=== PATIENT | male | born 1970 | race Caucasian/White ===

== ENCOUNTER 2018-02-05 08:49 | Outpatient (CLI) | payer OTHER ==
--- NOTE | 2018-02-05 11:36 | MRI ---
MRI RIGHT KNEE PERFORMED WITHOUT CONTRAST ENHANCEMENT: HISTORY: Fall two weeks ago. FINDINGS: There is a proximal ACL tear present. The posterior cruciate ligament is intact. The lateral meniscus is normal in shape and appearance. There are no signs of a medial meniscus tear , although there appears to be partial disruption of the meniscofemoral ligament. The meniscotibial ligament appears intact. This is associated with edema changes, both superficial and deep to the MCL with a partial tear of the more proximal MCL with slightly lax appearing fibers, although it does no t appear to be completely disrupted. The more distal MCL has a normal appearance, and the lateral co llateral ligamentous complex appears unremarkable. The patellar articular cartilage is intact. Medial and lateral patellar retinaculum and quadriceps a nd patellar tendons are normal. There is a typical posterior tibial bone contusion. There is a focus of T1 lucency in this area, com patible with a trabecular fracture, near the level of the fused epiphyseal plate. In addition, there is evidence of some cartilage injury along the posterior aspect of the lateral tibial plateau. This is near the tibial spine, and there appears to be a small focus where there is some delamination, wi th fluid undermining the cartilage in this area. This is approximately 6 mm in transverse dimension and similar sized in AP dimension. Also, incidental note is made of some muscle strain involving the vastus intermedius and some of the anterior fibers of the biceps femoris muscle. These changes are closer to the musculotendinous junct ion. IMPRESSION: 1. Proximal anterior cruciate ligament tear, which appears complete. 2. Grade 2 proximal medial collateral ligament injury, 3. Posterolateral tibial contusion. There appears to be an area of overlying articular cartilage in jury, where there is increased signal change within the 6 x 6 mm area of the articular cartilage, rodney ng the posterolateral side of the tibia. This is close to the region of the tibial spine. It appear s to have some component of delamination, as their appears to be fluid abutting the subchondral bony plate in this region. 4. Evidence of muscle strain involving the vastus intermedius and biceps femoris muscles, near the m usculotendinous junction region. POS: [facility]
== END 2018-02-05 08:50 | disposition home or self-care (01) ==
LOC: MRI 08:49
PROVIDERS: ATTEND Orthopaedic Surgery
DX: S83.511A Sprain of anterior cruciate ligament of right knee, initial encounter (principal); S76.311A Strain of muscle, fascia and tendon of the posterior muscle group at thigh level, right thigh, initial encounter; S80.11XA Contusion of right lower leg, initial encounter; S89.91XA Unspecified injury of right lower leg, initial encounter

== ENCOUNTER 2018-02-11 14:47 | Outpatient (CLI) | payer OTHER ==
[2018-02-11 15:44] LABS: #Eosinphils 0.4 thou/uL (0.0-0.7); #Lymphocytes 1.8 thou/uL (1.20-3.40); #Monocytes 0.6 thou/uL (0.11-0.59); #Neutrophils 5.5 thou/uL (1.40-6.50); %Basophils 0.3 % (0.0-1.0); %Eosinophils 4.6 % (0.0-10.0); %Monocytes 7.5 % (0.0-10.0); %Neutrophils 65.6 % (42.0-75.0); Hemoglobin 16.7 g/dL (14.0-18.0); Mean Corpuscular HGB CONC 35.6 g/dL (32.0-36.0); Mean Corpuscular Hemoglobin 32.5 pg (27.0-31.0); Mean Corpuscular Volume 91.3 fl (80.0-94.0); Mean Platelet Volume 7.3 fL (7.4-10.4); Platelet Count 254 thou/uL (130-400); RBC Distribution Width 11.5 % (11.5-14.5); Red Blood Cell (RBC) Count 5.14 mill/uL (4.70-6.10); White Blood Cell (WBC) Count 8.4 thou/uL (4.8-10.8)
[2018-02-11 16:05] LABS: Anion Gap 15 mmol/L (10-20); BUN (Urea Nitrogen) 15 mg/dL (8.9-20.6); Calc. Creatinine Clearance 0 mL/min (70-130); Carbon Dioxide 25 mmol/L (22-29); Chloride 105 mmol/L (98-107); Estimated GFR-MDRD 64; Glucose 80 mg/dL (70-105); Potassium 4.1 mmol/L (3.5-5.1); Sodium 141 mmol/L (136-145)
== END 2018-02-11 14:48 | disposition home or self-care (01) ==
LOC: LABBT 14:47
PROVIDERS: ATTEND Orthopaedic Surgery
DX: Z01.818 Encounter for other preprocedural examination (principal); S83.511A Sprain of anterior cruciate ligament of right knee, initial encounter
CPT/HCPCS: 80048; 85025; 93005; 93010

== ENCOUNTER 2018-02-12 07:22 | Observation (INO) | payer OTHER ==
[2018-02-11 14:56] VITALS: BMI 24.4
[2018-02-12] MEDS ORDERED: Dexamethasone 4 mg/ml Vial ONE (08:04)
[2018-02-12] MEDS ORDERED: Clindamycin/D5W 600 mg/50 ml Premix Bag ONE (08:04)
[2018-02-12] MEDS ORDERED: Fentanyl 100 MCG/2 ML VIAL ONE ×3 (08:04→11:45)
[2018-02-12] MEDS ORDERED: Midazolam HCl 2 mg/2 ml Vial ONE (08:04)
[2018-02-12] MEDS ORDERED: Bupivacaine HCl 0.5%/Epinephrine 1:200,000/PF 30 ml Vial ONE (11:03)
[2018-02-12] MEDS ORDERED: Ondansetron HCl/PF 4 MG/2 ML Vial IVP PRN ×2 (11:14→11:23)
[2018-02-12] MEDS ORDERED: Promethazine HCl 25 MG/ML VIAL SLOW IVP PRN (11:14)
[2018-02-12] MEDS ORDERED: Promethazine HCl 25 MG/ML VIAL IM PRN (11:14)
[2018-02-12] MEDS ORDERED: HYDROcodone/Acetaminophen 7.5/325 mg Tablet PO PRN (11:23)
[2018-02-12] MEDS ORDERED: Bisacodyl 10 MG SUPP PR PRN (11:23)
[2018-02-12] MEDS ORDERED: Acetaminophen 500 MG TAB PO PRN (11:23)
[2018-02-12] MEDS ORDERED: Milk Of Magnesia 30 ML UDCUP PO PRN (11:23)
[2018-02-12] MEDS ORDERED: traMADol HCl 50 MG TAB PO PRN (11:23)
[2018-02-12] MEDS ORDERED: Methocarbamol 500 MG TAB PO PRN (11:23)
[2018-02-12] MEDS ORDERED: diphenhydrAMINE 50 MG CAP PO PRN (11:23)
--- NOTE | 2018-02-12 11:45 | OP ---
DATE OF PROCEDURE: 02/12/2018 PREOPERATIVE DIAGNOSIS: Right knee anterior cruciate ligament tear, grade 2 medial collateral ligame nt tear. POSTOPERATIVE DIAGNOSES: 1. Right knee anterior cruciate ligament tear, grade 2 medial collateral ligament tear. 2. Stable undersurface tear to the lateral meniscus, posterior horn. PROCEDURE PERFORMED: 1. Right knee exam under anesthesia. 2. Right knee arthroscopy with arthroscopically-assisted ACL reconstruction using an allograft Lyndail les tendon. SURGEON: Ravindra Laguna M.D. LAND ACQUISITION SPECIALIST: Capo Sparks PA-C. BLOOD LOSS: Minimal. COMPLICATIONS: None. He did have a general anesthetic. He did have a preoperative block. IMPLANTS: Into the right knee is a 7 x 25 metal interference screw. A 10-mm BioComposite Delta scre w and a bicortical titanium screw with a soft tissue washer for a post-fixation on the tibia. These were all [employer] devices. He did go to recovery room in stable condition. INDICATIONS: A 47-year-old male, who had his knee injury a couple weeks back and was found to have a n ACL tear as well as a grade 2 MCL injury, and at this time, he opted for surgery. DESCRIPTION OF PROCEDURE: After all appropriate consent forms were explained and signed, he was take n back to the operating room, and at this time, was given general anesthetic. Once anesthesia was ap propriate, the tourniquet was placed on the right thigh, and at this time, an exam under anesthesia c ommenced. The knee was found to be stable to valgus stress in full extension, but opened up, and 30 degrees of flexion. He was stable to varus stress. He had negative posterior drawer and positive La chman. At this time, the leg was placed in an arthroscopic leg gould. The limb was then prepped an d draped in standard surgical fashion. Limb was exsanguinated and tourniquet was taken to 300 mmHg. An inferolateral portal was established and the scope was placed into the knee joint. A needle loca lization technique was then used to make a medial working portal just off the medial edge of the ellsworth llar tendon. At this time, diagnostic arthroscopy commenced. The ACL was found to be torn. The PCL was intact. There was a large loose fragment in the notch, which was later found to be part of the notch, which was thought to be when he tore his ACL and he got injured from this injury. This was re moved with a grasper. We then went ahead and removed any remaining ligament and went ahead at this t jaxon and performed a notchplasty. Once this was done, we turned to the medial compartment. Femur, ti luiz, and medial meniscus were probed and found to be intact. The lateral compartment was then evalua rodolfo, femur, tibia, and lateral meniscus, found the lateral meniscus to have an undersurface tear of t he posterior horn. It did not go to the superior surface. We used the shaver to shave up in the tor n portion on the undersurface. We decided to leave this alone. The tibia and femur were overall in good condition. The gutters were swept through and no loose bodies were noted and the patellofemoral joint was found to be in good condition. At this time, we went ahead and flexed our knee up and thr ough a medial portal, placed our [id number] guide and a pin up and out the anterolateral thigh. We then reamed with an 11-mm acorn reamer to a depth of 30. This was removed and all loose bony cartil aginous debris was removed from the knee joint. We then went ahead and dilated our femoral tunnel wi th a 10.5 and 11 dilators. We then turned our attention to the tibial tunnel. The guide set at 57-1 /2 degrees. We went ahead and placed our pin up into the knee joint. Prior to doing this, obviously we made tibial incision through skin and down through subcutaneous tissue. Once the pin had been pl aced, we then removed our soft tissue from around the pin and used our 11 mm acorn reamer to ream our tibial tunnel. Again, dilators were used to dilate with 10.5 and 11 dilators. The red rasp and a b urr were then used to smooth off our edges, and at this time, we went dry in the knee. The knee was flexed. The pin was placed up and out the anterolateral thigh again with a passing suture. This was pulled down the tibial tunnel and used to guide our graft into the knee joint. The femoral side was then fixated with a 7 x 25 metal interference screw in standard fashion. On the tibial side with th e knee held out near full extension, a posterior drawer being applied, a 10 mm BioComposite Delta scr ew was placed. We then backed this up by drilling, tapping, and placing a bicortical screw with a so ft tissue washer on the tibia. The knee was taken through full range of motion. The graft was found to not impinge throughout full flexion and extension, and at this time, we removed the scope and avery ined the knee. We then went ahead and cut off our excess Achilles tendon graft. We then used some d eep Vicryls to close our soft tissue followed by 2-0 Vicryl and surgical magali for skin. A bulky s terile dressing was applied and the tourniquet let down. Toes pinked up nicely. The patient was thomas kened and he was taken to the recovery room in stable condition. All counts were correct at the end of the case and he did receive preoperative IV antibiotics.
[2018-02-12] MEDS ORDERED: Meperidine HCl/PF 25 MG/ML VIAL ONE (11:48)
[2018-02-12] MEDS ORDERED: Promethazine HCl 25 MG/ML VIAL ONE (11:49)
[2018-02-12] MEDS ORDERED: Clindamycin/D5W 900 MG in Premix Bag 1 BAG IVPB SCH (14:00)
[2018-02-12] MEDS: Dextrose 5 %-0.45 % NaCl 1,000 ML IV SCH ×2 (15:06→21:45)
[2018-02-12] MEDS: HYDROcodone/Acetaminophen 7.5/325 mg Tablet PO PRN (15:18)
[2018-02-12] MEDS: Clindamycin/D5W 900 MG in Premix Bag 1 BAG IVPB SCH ×2 (15:18→20:59)
[2018-02-12] MEDS ORDERED: PROPOFOL 200 MG/20 ML VIAL ONE (17:42)
[2018-02-12] MEDS ORDERED: Dexamethasone 20 MG/5 ML VIAL ONE (17:42)
[2018-02-12] MEDS ORDERED: Ondansetron HCl/PF 4 MG/2 ML Vial ONE (17:42)
[2018-02-12] MEDS ORDERED: HYDROmorphone 0.5 MG/0.5 ML SYRINGE SLOW IVP SCH (18:15)
[2018-02-12] MEDS: Famotidine 20 MG TAB PO SCH (20:55)
[2018-02-12] MEDS ORDERED: Aspirin 81 mg Enteric Coated Tablet PO SCH (21:00)
[2018-02-12] MEDS ORDERED: ALPRAZolam 1 MG TAB PO SCH (21:00)
[2018-02-12] MEDS ORDERED: Topiramate 25 MG TAB PO SCH (21:00)
[2018-02-12] MEDS ORDERED: Atorvastatin Calcium 40 MG TAB PO SCH (21:00)
[2018-02-13] MEDS: Famotidine 20 MG TAB PO SCH (08:10)
[2018-02-13] MEDS ORDERED: Clopidogrel Bisulfate 75 MG TAB PO SCH (09:00)
[2018-02-13] MEDS ORDERED: Multivit, Therapeutic 1 TAB PO SCH (09:00)
[2018-02-13] MEDS ORDERED: Fish Oil 1,000 MG CAP PO SCH (09:00)
[2018-02-13] MEDS ORDERED: CeleCOXIB 100 MG CAP PO SCH (09:00)
[2018-02-13] MEDS ORDERED: CeleCOXIB 100 MG CAP PO ONE (09:30)
[2018-02-13] MEDS: HYDROcodone/Acetaminophen 7.5/325 mg Tablet PO PRN (09:56)
[2018-02-13] MEDS: Dextrose 5 %-0.45 % NaCl 1,000 ML IV SCH (09:58)
[2018-02-13 12:25] VITALS: BP 124/65; TEMP 97.3
== END 2018-02-13 12:10 | disposition home or self-care (01) ==
LOC: SDC 07:22 → SURG A 11:23
PROVIDERS: ADMIT Orthopaedic Surgery; ATTEND Orthopaedic Surgery
PROC: 0SBC4ZZ Excision of Right Knee Joint, Percutaneous Endoscopic Approach (ICD-10-PCS; principal; 2018-02-12)
PROC: 0MRN47Z Replacement of Right Knee Bursa and Ligament with Autologous Tissue Substitute, Percutaneous Endoscopic Approach (ICD-10-PCS; 2018-02-12)
DX: S83.511A Sprain of anterior cruciate ligament of right knee, initial encounter (principal); S83.411A Sprain of medial collateral ligament of right knee, initial encounter; S83.281A Other tear of lateral meniscus, current injury, right knee, initial encounter; F17.210 Nicotine dependence, cigarettes, uncomplicated; Z79.02 Long term (current) use of antithrombotics/antiplatelets; Z79.82 Long term (current) use of aspirin; Z79.899 Other long term (current) drug therapy; Z88.0 Allergy status to penicillin; Z01.818 Encounter for other preprocedural examination
CPT/HCPCS: 80048; 85025; 93005; 93010; 96361; 96365; 96374; 96375; 96376; C1713; G0378; G8978-GP-CI; G8979-GP-CI; G8980-GP-CI; J0670; J1100; J1170; J2175; J2250; J2270; J2405; J2550; J2704; J3010; J3490